=== PATIENT | female | born 1970 | race Caucasian/White ===

== ENCOUNTER 2020-08-17 08:43 | Outpatient (REF) | payer OTHER, SELFPAY ==
--- NOTE | 2020-08-17 08:47 | MM_ITS ---
EXAMINATION: MM SCREENING DIGITAL BREAST TOMOSYNTHESIS, BILATERAL CLINICAL INFORMATION: Screening. Asymptomatic. Bilateral implants 2001. No family history breast cancer. Postmenopausal. The lifetime risk of breast cancer based on the Tyrer-Cuzick Model is 5%. COMPARISON: Mammography: 02/09/2014 (baseline). TECHNIQUE: Digital mammography is performed in craniocaudal and mediolateral oblique views along with computer-aided detection (CAD). Digital breast tomosynthesis is performed in implant-displaced craniocaudal and implant-displaced mediolateral oblique views along with computer-aided detection (CAD). Synthesized 2D images are generated from the tomosynthesis. FINDINGS: The breasts are heterogeneously dense, which may obscure small masses (ACR BI-RADS breast composition Category c). There are bilateral implants. The implant contours are smooth and similar to prior exam. The right breast shows no interval mass or architectural abnormality or abnormal calcifications. The bilateral axilla and skin contours are unremarkable. The left breast has grouped heterogeneous calcifications posterior upper inner quadrant, better appreciated on current exam. The left breast has a nodule 3:00 position mid depth measuring 1.1 x 0.8 cm likely obscured by overlying tissue on current study. There is likely some peripheral coarse calcification within the nodule which may suggest fibroadenoma. MM/MM tomosynthesis screen imp BI IMPRESSION: 1. Left: Heterogeneous calcifications posterior upper inner quadrant. Nodule 1.1 cm mid 3:00 position. 2. Right: No mammographic evidence of malignancy. ASSESSMENT: BI-RADS 0: Incomplete - Need Additional Imaging Evaluation RECOMMENDATION: 1. Additional views of the left breast: magnification CC to include both areas, magnification ML for nodule calcification and magnification LM for upper inner quadrant calcifications. 2. Targeted ultrasound left breast. 3. Radiology department staff will contact the patient for additional imaging. This patient's information was entered into a reminder system with a target due date for their next mammogram.
== END 2020-08-17 08:44 | disposition home or self-care (01) ==
LOC: HO.MAMMO 08:43
PROVIDERS: Visit Provider Internal Medicine Geriatric Medicine
DX: Z12.31 Encounter for screening mammogram for malignant neoplasm of breast (principal)
CPT/HCPCS: 77063; 77067

== ENCOUNTER 2020-08-24 10:06 | Outpatient (REF) | payer OTHER, SELFPAY ==
--- NOTE | 2020-08-24 10:11 | US_ITS ---
EXAMINATION: MM DIAGNOSTIC DIGITAL MAMMOGRAPHY, LEFT US DIAGNOSTIC ULTRASOUND BREAST, LEFT CLINICAL INFORMATION: Recall from screening for 2 findings, grouped calcifications posterior upper inner left breast and nodule central 3:00 anterior left breast with peripheral calcification. Tyrer-Cuzick score is 5%. COMPARISON: Mammography: 08/17/2020, 02/09/2014 TECHNIQUE: Digital mammography is performed in the following views: Magnification CC x3, magnification ML x2, magnification LM x2. Ultrasound left breast is targeted to the 3:00 position. Grayscale imaging and color Doppler are performed without and with harmonics. FINDINGS: The breasts are heterogeneously dense, which may obscure small masses (ACR BI-RADS breast composition Category c). The additional magnification views show grouped calcifications posterior 11:00, most with layering on the lateral views consistent with milk of calcium. The number of calcifications in this area are similar to 2014. The calcifications are therefore considered to be benign. There are a few calcifications overlying the nodule central 3:00 position. These are punctate round on CC view and grouped layering on lateral view suggesting calcifications dependent within a cyst. Ultrasound left breast confirms chest 3:00 position 4 cm from nipple measuring 1.2 x 0.7 cm. The cyst is anechoic with circumscribed margins and no associated color flow. There is some very fine linear specular echo in the dependent cyst consistent with a layering calcifications on mammography. Results are discussed with the patient at time of visit. US/US breast LT limited IMPRESSION: 1. Grouped calcifications posterior 11:00 position with milk of calcium layering and no significant change in number since prior mammography 2013. These are considered to be benign. 2. Benign cyst anterior 3:00 position left breast with some fine layering dependently calcifications. This is considered to be benign. ASSESSMENT: BI-RADS 2: Benign RECOMMENDATION: Routine annual mammography screening. This patient's information was entered into a reminder system with a target due date for their next mammogram.
== END 2020-08-24 10:07 | disposition home or self-care (01) ==
LOC: HO.MAMMO 10:06
PROVIDERS: PCP Internal Medicine Geriatric Medicine; Visit Provider Internal Medicine Geriatric Medicine
DX: R92.1 Mammographic calcification found on diagnostic imaging of breast (principal); N63.0 Unspecified lump in unspecified breast
CPT/HCPCS: 76642; 77065

== ENCOUNTER 2020-09-08 02:57 | Emergency (ER) | payer OTHER, SELFPAY ==
[2020-09-08 03:07] VITALS: BP 157/80; PULSE 90; RESP 16; TEMP 37.2; O2SAT 99; BMI 25.4
--- NOTE | 2020-09-08 03:35 | PC.NURSE ---
Patient complaining of abdominal pain increasing. Patient medicated per emar as noted.
--- NOTE | 2020-09-08 03:55 | ED_ITS ---
HPI - Female Genitourinary General Chief complaint: Urogenital-Female Stated complaint: ?UTI/Allergic reaction Time Seen by Provider: 09/08/20 03:35 Source: patient Mode of arrival: ambulatory Limitations: no limitations History of Present Illness HPI Narrative: This is a 49-year-old female who was recently started on boric acid for treatment of BV by her technology architect, but subsequently developed perineal erythema and swelling without associated fevers, chills, urinary pain/ burning / frequency. Related Data Home Medications Medication Instructions Recorded Confirmed amitriptyline 1 tab PO BEDTIME 09/08/20 09/08/20 Previous Rx's Medication Instructions Recorded metronidazole [Flagyl] 500 mg PO Q12H 7 Days #14 tab 09/08/20 Allergies Allergy/AdvReac Type Severity Reaction Status Date / Time No Known Allergies Allergy Verified 09/08/20 03:11 Review of Systems Review of Systems: Pertinent positives and negatives as stated in HPI 10 point review of systems otherwise negative. PMFSH Past Medical History Source: nursing notes reviewed Social History Social History Smoking Status: Never smoker Use of substances other than those prescribed or required for medical reasons: No Advance Directives: No Advance Directives Information Provided: No Physical Exam Vital Signs: Vital Signs: Last Vital Signs Temp 98.9 F 09/08/20 03:07 Pulse 90 09/08/20 03:07 Resp 16 09/08/20 03:07 BP 157/80 H 09/08/20 03:07 Pulse Ox 99 09/08/20 03:07 Body Mass Index 25.4 VITAL SIGNS: Reviewed. GENERAL: Well developed, well nourished, in no acute distress. HEAD: Normocephalic/atraumatic, EYES: PERRLA, EOMI intact without pain, no nystagmus/pallor/icterus noted EARS: Ext canals without abnormality, TMs non-bulging and non-erythematous NOSE: Nares patent bilateral OROPHARYNX: no oral lesions noted, posterior pharynx clear and non-erythematous without noted tonsillar enlargement/erythema/exudates NECK: Supple, no adenopathy LUNGS: Normal breath sounds. No adventitious sounds or accessory muscle use. SpO2<99> CARDIOVASCULAR: Regular rate and rhythm without noted murmurs, no JVD or lower extremity edema. ABDOMEN: Soft, non-tender, non-distended with bowel sounds. No rigidity. No guarding. No palpable masses or hernias noted MUSCULOSKELETAL: No tenderness, deformities, or effusions noted on gross inspection. EXTREMITIES: No cyanosis, clubbing or edema. SKIN: Inspection of the skin reveals no rashes, ulcerations, jaundice, pallor, or petechiae. NEUROLOGIC: Alert and oriented x 4. Strength and sensation to light touch were grossly intact x 4. Course Course Course Narrative: This is a 49-year-old female with history and clinical presentation consistent with known side effects secondary to work acid use despite it being listed as a 1st line medication in the treatment of BV. Patient was instructed to stop the current medication and reassure that she will be started on a different medication that she should continue for 7 days. In addition, she was advised to follow-up with her technology architect on Thursday. Discharge Plan Discharge Clinical Impression: Bacterial vaginosis Allergic reaction Qualifiers: Encounter type: initial encounter Qualified Code(s): T78.40XA - Allergy, unspecified, initial encounter Patient Disposition: Home, Self-Care Instructions: Bacterial Vaginosis (ED), General Allergic Reaction (ED) Additional Instructions: 1. deje de ronald ?cido b?rico. 2. inicie el nuevo medicamento que le chi sido enviado a anna farmacia. 3. Marley un seguimiento con anna ginec?logo el lunes por la ma?kali. El paciente y / o la anthony reconocen que comprenden los resultados (seg?n corresponda), el diagn?stico, el plan de tratamiento, la necesidad de seguimiento y los s?ntomas que deber?an impulsar el regreso a la kieran de emergencias. Prescriptions: New metronidazole [Flagyl] 500 mg tablet 500 mg PO Q12H 7 Days Qty: 14 RF: 0 No Action amitriptyline 10 mg tablet 1 tab PO BEDTIME RF: 0 Referrals: Jv Duron MD [Primary Care Provider] - 2 days (Further follow-up of bacterial vaginosis after reaction to boric acid) Print Language: Nauruan
== END 2020-09-08 04:17 | disposition home or self-care (01) ==
PROVIDERS: Emergency Provider Student in an Organized Health Care Education/Training Program; PCP Internal Medicine Geriatric Medicine
DX: N76.0 Acute vaginitis (principal); Z79.899 Other long term (current) drug therapy
CPT/HCPCS: 99283; 99284

== ENCOUNTER → 2020-11-13 13:12 | Outpatient (BNVA) | payer OTHER, SELFPAY | PROVIDERS: PCP Internal Medicine Geriatric Medicine; Referring Provider Internal Medicine Geriatric Medicine; Visit Provider Nurse Practitioner ==

== ENCOUNTER 2022-02-20 10:05 | Outpatient (REF) | payer OTHER, SELFPAY ==
[2022-02-20 12:11] LABS: MANUAL DIFF FLAG NO
[2022-02-20 12:39] LABS: Basophils Absolute Auto 0.1 X10*3/uL (0.0-0.2); Basophils Percent Auto 1.3 % (0-2); Eosinophils Absolute Auto 0.3 X10*3/uL (0.0-0.4); Eosinophils Percent Auto 4.8 % (0-4); Hematocrit 41.9 % (37.0-47.0); Hemoglobin 13.7 g/dl (12.0-16.0); Imm Gran Abs Auto 0.02 X10*3/uL (0.00-0.03); Imm Gran Pct Auto 0.3 % (0.0-0.4); Lymphocytes Absolute Auto 1.5 X10*3/uL (1.2-4.9); Mean Corpuscular HGB Conc 32.7 g/dl (31.0-35.0); Mean Corpuscular Hemoglobin 30.7 pg (27.0-33.0); Mean Corpuscular Volume 93.9 fL (80.0-98.0); Mean Platelet Volume 9.5 fL (9.4-12.3); Monocytes Absolute Auto 0.5 X10*3/uL (0.1-1.2); Monocytes Percent Auto 8.5 % (2-11); Neutrophils Absolute Auto 3.7 x10*3/uL (2.0-8.3); Neutrophils Percent Auto 61.1 % (45-73); Platelet Count 300 X10*3/uL (160-400); Red Blood Count 4.46 X10*6/uL (4.20-5.50); Red Cell Distribution Width 12.4 % (11.0-16.0); White Blood Count 6.1 X10*3/uL (4.8-10.8)
[2022-02-20 13:08] LABS: Alanine Aminotransferase 41 U/L (0-31); Albumin Level 4.5 g/dL (3.5-5.0); Alkaline Phosphatase 72 U/L (39-117); Anion Gap 10 (12-20); Aspartate Amino Transferase 30 U/L (5-31); Bilirubin Total 0.5 mg/dL (0.0-1.0); Blood Urea Nitrogen 15 mg/dL (9-16); C Reactive Protein 0.39 mg/dL (< or = 0.50); Calcium 10.1 mg/dL (8.4-10.2); Carbon Dioxide 30 mmol/L (22-29); Chloride 103 mmol/L (96-108); Estimated Glomerular Filt Rate 59; Glucose Random 97 mg/dL (60-115); Potassium 4.7 mmol/L (3.3-5.1); Sodium 138 mmol/L (135-145); Total Protein 7.6 g/dL (6.5-8.0)
[2022-02-20 13:30] LABS: Thyroid Stimulating Hormone 2.31 uIU/mL (0.32-4.0)
== END 2022-02-20 10:06 | disposition home or self-care (01) ==
LOC: HO.LAB 10:05
PROVIDERS: PCP Internal Medicine Geriatric Medicine; Visit Provider Internal Medicine Rheumatology
DX: M79.10 Myalgia, unspecified site (principal); R25.3 Fasciculation; R63.5 Abnormal weight gain
CPT/HCPCS: 36415; 80053; 82550; 84443; 85025; 86140